=== PATIENT | male | born 1995 | race Caucasian/White ===

== ENCOUNTER 2024-08-07 04:13 | Inpatient (IN) | payer SELFPAY ==
[~2024-08-07] VITALS: Ht 172.7 cm; Wt 92.5 kg
[2024-08-07] MEDS ORDERED: METHYLPREDNISOLONE SOD SUCC 125MG/2ML (ACT-O-VIAL) IV ONE (04:45)
[2024-08-07] MEDS ORDERED: ALBUTEROL (0.5%) 2.5MG/0.5ML NEB HHN ONE (04:45)
[2024-08-07] MEDS: KETOROLAC 30MG/ML VIAL IV STA (06:19)
[2024-08-07 07:11] LABS: ALANINE AMINOTRANSFERASE 19 IU/L (10-49); ALBUMIN 4.6 g/dL (3.2-4.8); ASPARTATE AMINOTRANSFERASE 18 IU/L (<34); BILIRUBIN DIRECT 0.2 mg/dL (<=3.0); BILIRUBIN TOTAL 0.8 mg/dL (0.1-1.0); PROTEIN TOTAL 8.1 g/dL (6.0-8.3)
[2024-08-07] MEDS ORDERED: MORPHINE SULFATE 4 MG/ML INJ (FOR IV/IM USE) IV ONE (08:15)
[2024-08-07 08:58] LABS: CLARITY URINE CLOUDY (CLEAR); COLOR URINE YELLOW (YELLOW); GLUCOSE URINE NEGATIVE (NEGATIVE); KETONES URINE TRACE (NEGATIVE); LEUKOCYTE ESTERASE URINE NEGATIVE (NEGATIVE); NITRITE URINE NEGATIVE (NEGATIVE); OCCULT BLOOD URINE 3+ (NEGATIVE); PH URINE 5.5 (4.5-8.0); PROTEIN URINE 1+ (NEGATIVE); SPECIFIC GRAVITY URINE 1.029 (1.005-1.030); UROBILINOGEN URINE 0.2 E.U./dL (0.2-1.0)
[2024-08-07 09:14] LABS: BACTERIA URINE 2+; RBC URINE 50-100 /hpf (0-2); SQUAMOUS EPITHELIAL CELL URINE 1+ /lpf (RARE/1+); YEAST URINE NONE SEEN
[2024-08-07] MEDS ORDERED: MORPHINE SULFATE 4 MG/ML INJ (FOR IV/IM USE) IV NR (09:30)
[2024-08-07 10:30] VITALS: BP 116/67; PULSE 86; RESP 18; TEMP 36.2512
[2024-08-07] MEDS ORDERED: KETOROLAC 15MG/ML VIAL IV PRN (10:30)
[2024-08-07] MEDS ORDERED: MAGNESIUM/ALUMINUM HYDROXIDE/SIMETHICONE 30ML UDC PO PRN (10:30)
[2024-08-07] MEDS ORDERED: ONDANSETRON HCL 4MG/2ML INJ IV PRN (10:30)
[2024-08-07] MEDS ORDERED: ACETAMINOPHEN 325MG TABLET PO PRN ×2 (10:30)
[2024-08-07] MEDS ORDERED: IPRATROPIUM/ALBUTEROL 0.5-3(2.5)MG/3ML NEB HHN PRN (10:30)
[2024-08-07] MEDS ORDERED: DOCUSATE SODIUM 100MG CAPSULE PO PRN (10:30)
[2024-08-07] MEDS ORDERED: SODIUM CHLORIDE 0.9% 1,000 ML IV SCH (10:30)
[2024-08-07] MEDS ORDERED: GUAIFENESIN 200MG/10ML SUGAR FREE UDC PO PRN (10:30)
[2024-08-07] MEDS ORDERED: CLONIDINE 0.1MG TABLET PO PRN (10:30)
[2024-08-07 12:00] VITALS: BP 116/67; PULSE 86; RESP 18; TEMP 36.22512; O2SAT 100
[2024-08-07] MEDS: TAMSULOSIN HCL 0.4MG SR CAPSULE PO SCH (13:33)
[2024-08-07] MEDS ORDERED: SODIUM CHLORIDE 0.9% 500 ML IV ONE (14:00)
[2024-08-07 16:00] VITALS: BP 128/85; PULSE 100; RESP 18; TEMP 36.3918; O2SAT 100
[2024-08-07 16:29] LABS: TRIGLYCERIDE 62 mg/dL (0-150)
[2024-08-07 16:30] LABS: LDL CHOLESTEROL 89 mg/dL (5-100)
[2024-08-07 16:31] LABS: ALANINE AMINOTRANSFERASE 17 IU/L (10-49); ALBUMIN 4.3 g/dL (3.2-4.8); ASPARTATE AMINOTRANSFERASE 17 IU/L (<34); BILIRUBIN DIRECT 0.2 mg/dL (<=3.0); CHOLESTEROL 151 mg/dL (<200); HDL CHOLESTEROL 45 mg/dL (>55)
[2024-08-07 16:32] LABS: BILIRUBIN TOTAL 0.7 mg/dL (0.1-1.0); PROTEIN TOTAL 7.4 g/dL (6.0-8.3)
[2024-08-07 16:34] LABS: THYROID STIMULATING HORMONE 0.65 uIU/mL (0.55-4.78)
[2024-08-07 16:37] LABS: HEMATOCRIT 46.1 % (42.0-52.0); HEMOGLOBIN 15.4 g/dL (14.0-18.0); MEAN CORPUSCULAR HEMOGLOBIN 30.2 pg (28.0-32.0); MEAN CORPUSCULAR HGB CONC 33.4 g/dL (31.0-37.0); MEAN CORPUSCULAR VOLUME 90.3 fL (80.0-94.0); PLATELET 200 x1000/uL (130-400); RED CELL DISTRIBUTION WIDTH 12.9 % (11.6-14.6); WHITE BLOOD COUNT 8.5 x1000/uL (4.5-11.0)
[2024-08-07 20:00] VITALS: BP 120/73; PULSE 95; RESP 19; TEMP 36.3918; O2SAT 99
[2024-08-07 21:59] LABS: CHLORIDE 106 mEq/L (98-107); POTASSIUM 3.3 mEq/L (3.5-5.1); SODIUM 139 mEq/L (136-145)
[2024-08-07 22:00] LABS: CALCIUM 9.3 mg/dL (8.7-10.4); CARBON DIOXIDE 25 mEq/L (21-32)
[2024-08-07 22:05] LABS: CREATININE 0.9 mg/dL (0.6-1.3); GLUCOSE 103 mg/dL (70-105); UREA NITROGEN BLOOD 11 mg/dL (9-23)
[2024-08-08 04:00] VITALS: BP 117/73; PULSE 85; RESP 19; TEMP 36.6696; O2SAT 99
[2024-08-08 07:35] LABS: CHLORIDE 106 mEq/L (98-107); POTASSIUM 3.6 mEq/L (3.5-5.1); SODIUM 139 mEq/L (136-145)
[2024-08-08 07:36] LABS: CALCIUM 9.4 mg/dL (8.7-10.4); CARBON DIOXIDE 25 mEq/L (21-32)
[2024-08-08 07:41] LABS: ALBUMIN 4.3 g/dL (3.2-4.8); CREATININE 0.8 mg/dL (0.6-1.3); GLUCOSE 81 mg/dL (70-105); UREA NITROGEN BLOOD 11 mg/dL (9-23)
[2024-08-08 07:49] LABS: BASOPHILS % 0.2 % (0.0-2.0); EOSINOPHILS % 1.1 % (0.0-5.0); HEMATOCRIT. 47.3 % (42.0-52.0); HEMOGLOBIN. 16.1 g/dL (14.0-18.0); LYMPHOCYTES % 43.7 % (20.0-50.0); MEAN CORPUSCULAR HEMOGLOBIN 30.1 pg (28.0-32.0); MEAN CORPUSCULAR VOLUME 88.6 fL (80.0-94.0); MEAN PLATELET VOLUME 8.5 fl (7.4-10.4); MONOCYTES % 6.2 % (2.0-8.0); NEUTROPHILS % 48.8 % (40.0-76.0); PLATELET 183 x1000/uL (130-400); RED BLOOD CELL COUNT 5.34 mill/uL (4.7-6.1); RED CELL DISTRIBUTION WIDTH 12.8 % (11.6-14.6); WHITE BLOOD COUNT 6.9 x1000/uL (4.5-11.0)
[2024-08-08 08:00] VITALS: BP_SYST 116; BP_SYST 144; BP_DIAS 68; BP_DIAS 77; PULSE 78; PULSE 87; RESP 17; RESP 18; TEMP 36.3918; O2SAT 95; O2SAT 98
[2024-08-08 12:00] VITALS: BP 116/79; PULSE 100; RESP 19; TEMP 36.72516; O2SAT 97
[2024-08-08] MEDS ORDERED: NITR-87 MT (12:45)
[2024-08-08 14:01] VITALS: BP 116/79; PULSE 98; TEMP 98.1; O2SAT 97
== END 2024-08-08 15:30 | disposition home or self-care (01) | DRG 463 ==
LOC: ER 04:13 → 6EST 09:06 → EDBEDREQ 09:09 → EDBEDREQTM 09:09
PROVIDERS: ADMIT Hospitalist; ATTEND Hospitalist
DX: N13.6 Pyonephrosis (principal); E66.9 Obesity, unspecified; K57.30 Diverticulosis of large intestine without perforation or abscess without bleeding; K76.9 Liver disease, unspecified; Z68.31 Body mass index [BMI] 31.0-31.9, adult
CPT/HCPCS: 36415; 74176; 80048; 80061; 80076; 81003; 82040; 82962; 83036; 84443; 85025; 85027; 93005; 99285; A4606; J1885